=== PATIENT | female | born 1985 | race Two or more races ===

== ENCOUNTER 2022-09-21 22:33 | Emergency (ER) | payer MEDICAID ==
[~2022-09-21] VITALS: Ht 157.5 cm; Wt 59.0 kg
--- NOTE | 2022-09-21 22:45 | NUR ---
PT AMB TO [facility].
[2022-09-21 23:34] LABS: HEMATOCRIT 26.1 % (31.2-41.9); MEAN CORPUSCULAR HEMOGLOBIN 35.7 uug (24.7-32.8); PLATELET COUNT (AUTO) 82 K/uL (179-408)
[2022-09-21 23:47] LABS: BILIRUBIN,TOTAL 0.8 mg/dL (0.2-1.0); CREATININE 0.6 mg/dL (0.6-1.3); POTASSIUM 3.6 mmol/L (3.5-5.1); TOTAL PROTEIN, SERUM 6.8 g/dL (6.4-8.2)
[2022-09-22] LABS: BAND % (MANUAL) 4 % (0-10); LYMPHOCYTES % (MANUAL) 44 % (20-40); MONOCYTES % (MANUAL) 14 % (2-10)
[2022-09-22 00:01] LABS: EOSINOPHILS % (MANUAL) 2 % (0-8); NEUTROPHILS % (MANUAL) 36 % (42-75)
--- NOTE | 2022-09-22 00:10 | NUR ---
PT UP OOB AMB TO [facility] , URINE COLLECTED / SENT TO LAB.
--- NOTE | 2022-09-22 00:20 | NUR ---
PT GIVEN FOOD AND JUICE. PT BRIAN WELL WITH NO N/V.
[2022-09-22 00:22] LABS: *BLOOD, URINE 3+ (NEGATIVE); *COLOR,URINE YELLOW (YELLOW); *KETONES,URINE NEGATIVE (NEGATIVE); *UROBILINOGEN,URINE >=8.0 E.U./dl (NORMAL); LEUKOCYTE ESTERASE ,URINE 1+ (NEGATIVE); NITRITE, URINE NEGATIVE (NEGATIVE); UGLUCOSE NEGATIVE (NEGATIVE)
[2022-09-22 00:31] LABS: *BILIRUBIN,URIN 1+ (NEGATIVE)
[2022-09-22 00:32] LABS: *CLARITY,URINE SLIGHTLY CLOUDY (CLEAR)
[2022-09-22 00:33] LABS: *URINE HCG, QUAL NEGATIVE (NEGATIVE)
[2022-09-22 00:58] LABS: RBC,URINE TNTC /HPF (0-3)
[2022-09-22 00:59] LABS: BACTERIA,URINE FEW /HPF (NONE SEEN); SQUAMOUS EPITHELIAL CELL,UR FEW /HPF (NONE SEEN)
--- NOTE | 2022-09-22 01:00 | NUR ---
Patient given written and verbal discharge instructions. Patient verbalizes understanding of instructions. Patient is ambulatory with steady gait. Refuses offer of prison placement. Patient given list of available shelters in surrounding area.
--- NOTE | 2022-09-22 02:39 | NUR ---
Note flako in EDM - 09/22/22 at 0240 by [email or web address] Patient given written and verbal discharge instructions. Patient verbalizes understanding of instructions. Patient is ambulatory with steady gait. Refuses offer of half-way placement. Patient given list of available shelters in surrounding area.
[2022-09-22 02:41] VITALS: BP 107/69; TEMP 98; O2SAT 100
== END 2022-09-22 01:00 | disposition home or self-care (01) ==
LOC: ER 22:34
DX: R53.1 Weakness (principal); R31.9 Hematuria, unspecified; D69.6 Thrombocytopenia, unspecified; D61.9 Aplastic anemia, unspecified; F17.210 Nicotine dependence, cigarettes, uncomplicated; Z88.1 Allergy status to other antibiotic agents
CPT/HCPCS: 36415; 70030-TC; 84703; 85025; 86850; 86900; 86901; A4663